=== PATIENT | female | born 1980 | race Caucasian/White ===

== ENCOUNTER 2022-01-03 10:44 | Emergency (ER) | payer OTHER, SELFPAY ==
[2022-01-03 10:53] VITALS: BP 113/93; PULSE 86; RESP 18; TEMP 36.7; O2SAT 98; BMI 26.6
--- NOTE | 2022-01-03 11:15 | CT_ITS ---
Final Report Patient: JERI PAGE Facility:?[facility] Patient ID:?[id number] Site Patient ID:?[id number] Site :?[id number] Study:?CT Abdomen/Pelvis w/o-01/03/2022 12:03:12 PM Ordering Physician:?DR. TRENT Final Report: INDICATION: Abdominal pain radiating to the back. COMPARISON: None TECHNIQUE: CT examination of the abdomen and pelvis was performed without intravenous contrast. Thin section axial images were obtained from the lung bases through the pubic symphysis. Oral contrast was not administered. Please note that all CT scans at this facility use dose modulation, iterative reconstruction, and/or weight-based dosing when appropriate to reduce radiation dose to as low as reasonably achievable. FINDINGS: LUNG BASES: The lung bases as visualized appear normal.The heart size is normal at the lung bases. LIVER/BILIARY SYSTEM:The liver is normal in size and configuration given the lack of intravenous contrast. There is no visible focal mass and there is no intra- or extra hepatic biliary ductal dilatation.The gall bladder appears normal. ADRENALS: Normal non-contrast appearance KIDNEYS, URETERS and BLADDER:There are small intrarenal calculi bilaterally. There is prominence of the left ureter. This appears to be due to a 2.5 millimeter calculus in the distal left ureter near the ureterovesical junction SPLEEN:Normal non-contrast appearance. PANCREAS: Normal non-contrast appearance. RETROPERITONEUM and MESENTERY: There is no mass, adenopathy or aortic aneurysm. GASTROINTESTINAL SYSTEM: There is no evidence of diverticulitis, colitis, mechanical obstruction, or appendicitis. The small bowel as visualized appears normal.Fecal retention PELVIS: No mass, adenopathy or free fluid. OSSEOUS STRUCTURES and ABDOMINAL WALL: There is an age-appropriate appearance of the osseous structures.No significant abdominal wall defect. OTHER: No free fluid or free air. IMPRESSION: Intrarenal calculi bilaterally. Mild left hydroureter. There is a 2.5 millimeter calcified calculus in the distal left ureter near the ureterovesical junction. Please note that all CT scans at this facility use dose modulation, iterative reconstruction, and/or weight-based dosing when appropriate to reduce radiation dose to as low as reasonably achievable. Dictated by Alvaro Larson MD @ 01/03/2022 12:40:12 PM (Electronic Signature)
[2022-01-03 11:39] LABS: Basophils Absolute Auto 0.02 K/uL (0.00-0.30); Basophils Percent Auto 0.3 % (0.0-3.0); Eosinophils Absolute Auto 0.07 K/uL (0.00-0.50); Eosinophils Percent Auto 0.9 % (0.0-7.0); Hematocrit 37.5 % (33.0-51.0); Hemoglobin* 12.3 gm/dL (12.0-16.0); Immature Granulocytes Abs Auto 0.01 K/uL (0.00-0.30); Lymphocytes Percent Auto 16.9 % (20-44); Mean Corpuscular HGB Conc 33 gm/dL (32-36); Mean Corpuscular Hemoglobin 29 pg (26-34); Mean Corpuscular Volume 89 fL (80-100); Monocytes Percent Auto 5.4 % (0.0-11.0); Neutrophils Percent Auto 76.4 % (42.0-72.0); Platelet Count* 300 K/uL (140-440); RDW Coefficient of Variation % 13.5 % (11.5-15.5); Red Blood Count 4.23 m/uL (4.00-5.20); Sodium* 139 mmol/L (135-149); White Blood Count* 7.75 K/uL (4.50-11.00)
[2022-01-03 11:40] LABS: Carbon Dioxide* 23 mmol/L (20-32); Chloride* 107 mmol/L (96-114); Glucose* 94 mg/dL (60-115)
[2022-01-03 11:41] LABS: Slide Review Reflex No
[2022-01-03] MEDS: 0.9 % SODIUM CHLORIDE 500 ML 500 ML IV (12:11)
[2022-01-03 12:41] LABS: Blood Urea Nitrogen* 15 mg/dL (5-24); Creatinine* 0.7 mg/dL (0.5-1.5); Est. Creatinine Clearance* 86.61; Estimated Glomerular Filt Rate 111 ml/min
[2022-01-03 12:42] LABS: Calcium* 9.1 mg/dL (8.4-10.6)
--- NOTE | 2022-01-03 12:51 | ED_ITS ---
HPI - Abdominal Pain General Time Seen by Provider: 11:00 Date Seen: 01/03/22 Chief Complaint: Abdominal Pain Stated Complaint: Abdominal pain on left side radiates to back Time Seen by Provider: 01/03/22 11:08 Source: patient and RN notes reviewed Mode of arrival: ambulatory Limitations: no limitations History of Present Illness HPI narrative: Tresa is a very pleasant 41-year-old female with a history of frequent yeast infections and ovarian cysts who comes to the emergency room for evaluation of left sided abdominal pain. Patient notes the sudden onset of left abdominal pain after urinating earlier. She notes that the pain wraps around to her back. It is not associated with any vomiting. She describes is fairly intense. She notes that it went away initially and then came back. Currently at this moment she states she is feeling okay. She states that her ovarian cysts have not caused her this type of pain before. She notes that she is due for her period in 1 week and she frequently gets yeast type is vaginal symptoms prior to it. Not had fever or chills. Patient has a history of pancreatitis of unknown cause. Patient has a brother with kidney stones. Related Data Home Medications Medication Instructions Recorded Confirmed atorvastatin 10 mg tablet mg 01/03/22 Allergies Allergy/AdvReac Type Severity Reaction Status Date / Time No Known Drug Allergies Allergy Verified 01/03/22 10:59 Review of Systems Status of ROS Reports: 6 or more systems reviewed and unremarkable except as noted in History and below Narrative Patient denies fever or chills, denies hematuria but does note some mild dysuria. Patient has not had diarrhea or constipation. She denies any recent cough cold congestion. Const Denies: fever or chills ENMT Denies: difficulty swallowing Cardio Denies: chest pain or shortness of breath with exertion Resp Denies: shortness of breath GI Denies: difficulty swallowing Reports: painful urination; Denies: urinary frequency Neuro Denies: headache Endo Denies: excessive urination PFSH [facility] Medical History (Updated 01/03/22 @ 14:28 by Soco Abdi MD) Ovarian cyst Pancreatitis Surgical History (Updated 01/03/22 @ 11:02 by Opal Mccoy RN) S/P removal of ovarian cyst Social History Smoking Status: Never smoker How often do you have a drink containing alcohol: monthly or less AUDIT-C Alcohol total score: 1 Non-prescribed substance use: denies use Exam Narrative: Exam Narrative: Family history: Patient has a brother with history of kidney stones. Const: Vital Signs, click to edit/add: Vital Signs - 24 hr 01/03/22 10:53 Temperature 98.1 F Pulse Rate [Pulse Oximeter] 86 Respiratory Rate 18 Blood Pressure [Ri ght Upper Arm] 113/93 H Pulse Oximetry 98 Documenting provider has reviewed patient's vital signs: yes Common normals: no apparent distress and oriented x3 General appearance: cooperative and other (Very guarded in her movement.) HENMT: Common normals: normocephalic Head and scalp: normocephalic Eye: General eye: normal appearance of both eyes Neck & C-Spine: Common normals: full ROM Resp: Common normals: normal respiratory effort and clear to auscultation b ilaterally Auscultation: clear to auscultation bilaterally Cardio: Common normals: regular rate and regular rhythm Rate: regular rate Rhythm: regular rhythm GI: Common normals: soft to palpation Palpation: soft : Common normals: no CVA tenderness Bladder/kidney exam: no CVA tenderness Back & Pelvis: Common normals: no CVA tenderness Extremity: Common normals: normal to inspection Neuro: Common normals: oriented x3 Course Reevaluation(s) Reevaluation #1: Patient is strongly suspicious for kidney stones but we cannot rule out the possibility of ovarian cyst, colitis, hernia, constipation, UTI. Will obtain a urinalysis and will put patient through CT scan without contrast at this time. Will strain urine as she is feeling better at this time. Also will check CBC, basic panel. Vital Signs Vital signs: Initial Vital Signs Temperature 98.1 F 01/03/22 10:53 Temperature Source Temporal Artery Scan 01/03/22 10:53 Pulse Rate 86 01/03/22 10:53 Pulse Rhythm 01/03/22 10:53 Respiratory Rate 18 01/03/22 10:53 Blood Pressure 113/93 H 01/03/22 10:53 Blood Pressure Mean 99 01/03/22 10:53 Blood Pressure Position Sitting 01/03/22 10:53 Pulse Oximetry 98 01/03/22 10:53 Oxygen Delivery Method 01/03/22 10:53 Vital Signs Temperature 98.1 F 01/03/22 10:53 Pulse Rate 86 01/03/22 10:53 Respiratory Rate 18 01/03/22 10:53 Blood Pressure 113/93 H 01/03/22 10:53 Pulse Oximetry 98 01/03/22 10:53 Temperature 98.1 F 01/03/22 10:53 Pulse Rate 86 01/03/22 10:53 Respiratory Rate 18 01/03/22 10:53 Blood Pressure 113/93 H 01/03/22 10:53 Pulse Oximetry 98 01/03/22 10:53 MDM - Abdominal Pain MDM Narrative Medical decision making narrative: 1. Ureteral colic-patient has a 2.5 mm kidney stone in the distal left ureter causing mild hydronephrosis. Urinalysis does not show any evidence of UTI and white count is reassuring. Patient has not had return of pain since she has been here. She did strain her urine for her urine sample. Will have her continue to strain her urine at home. She declines any medications but she may use ibuprofen as needed for discomfort. I have advised tresa to follow-up with further primary MD if she has continued similar symptoms. We would not want to have an on passed stone for greater than 2 weeks. She is to return to the emergency room for worsening symptoms. 2. Disposition-patient is discharged home. Return for worsening symptoms and as needed. Medical Records Medical records narrative: Previous records reviewed Lab Data Lab results narrative: Lab reviewed Labs: Lab Results 01/03/22 01/03/22 01/03/22 Range/Units 11:10 11:10 13:10 WBC 7.75 (4.50-11.00) K/uL RBC 4.23 (4.00-5.20) m/uL Hgb 12.3 (12.0-16.0) gm/dL Hct 37.5 (33.0-51.0) % MCV 89 (80-100) fL MCH 29 (26-34) pg MCHC 33 (32-36) gm/dL RDW Coeff of Tod 13.5 (11.5-15.5) % Plt Count 300 (140-440) K/uL Neut % (Auto) 76.4 H (42.0-72.0) % Lymph % (Auto) 16.9 L (20-44) % [place] % (Auto) 5.4 (0.0-11.0) % Eos % (Auto) 0.9 (0.0-7.0) % Baso % (Auto) 0.3 (0.0-3.0) % Neut # (Auto) 5.90 (1.7-7.0) K/uL Lymph # (Auto) 1.30 (0.90-2.90) K/uL [place] # (Auto) 0.40 (0.00-0.90) K/UL Eos # (Auto) 0.07 (0.00-0.50) K/uL Baso # (Auto) 0.02 (0.00-0.30) K/uL Abs Immat Gran (auto) 0.01 (0.00-0.30) K/uL Sodium 139 (135-149) mmol/L Potassium 4.0 (3.6-5.1) mmol/L Chloride 107 (96-114) mmol/L Carbon Dioxide 23 (20-32) mmol/L BUN 15 (5-24) mg/dL Creatinine 0.7 (0.5-1.5) mg/dL Estimated Creat Clear 86.61 Estimated GFR 111 ml/min Glucose 94 (60-115) mg/dL Calcium 9.1 (8.4-10.6) mg/dL Urine Color Yellow (Yellow) Urine Appearance Clear (Clear) Urine pH 6.0 (5.0-8.5) Ur Specific [place] 1.025 (1.000-1.030) Urine Protein Negative (Negative) Urine Glucose (UA) Negative (Negative) Urine Ketones Trace A (Negative) Urine Blood 3+ A (Negative) Urine Nitrite Negative (Negative) Urine Bilirubin Negative (Negative) Urine Urobilinogen 0.2 (0.2-1.0) Ur Leukocyte Esterase Negative (Negative) Urine RBC 25-50 A (0-2) Urine WBC 2-5 (0-5) Ur Squamous Epith Cells Few (None-Few) Amorphous Sediment (None) Urine Bacteria Few A (None) Urine Mucus Moderate A (None) Imaging Data CT scan - abdomen: My impression: Small stone noted in the distal left ureter Radiologist's impression: 2.5 mm stone in the distal left ureter causing mild hydronephrosis. Discharge Plan Discharge Clinical Impression: Calculus of kidney Patient Disposition: Home, Self-Care Condition: Improved Additional Instructions: Recommend pushing fluids. Ibuprofen may be used for discomfort. Follow-up with your primary MD if you are noticing recurrent discomfort. A urology appointment may be necessary if we think you have not passed the stone. Continue to strain your urine. Return to the emergency room for fever, vomiting and as needed. Activity Level: No Restrictions Prescriptions: No Action atorvastatin 10 mg tablet 0RF Label Comments: TAKE ONE TABLET BY MOUTH EVERY DAY Follow Up/Referrals: Provider,Not a Local [Primary Care Provider] - Stand Alone Forms: [employer] Info Instructions
[2022-01-03 14:17] LABS: Appearance Urine Clear (Clear); Bilirubin Urine Negative (Negative); Blood Urine 3+ (Negative); Color Urine Yellow (Yellow); Glucose Urine Negative (Negative); Ketones Urine Trace (Negative); Leukocyte Esterase Urine Negative (Negative); Nitrite Urine Negative (Negative); Protein Urine Negative (Negative); Specific Gravity Urine 1.025 (1.000-1.030); Urobilinogen Urine 0.2 (0.2-1.0)
[2022-01-03 14:24] LABS: Bacteria Urine Few; RBC Urine 25-50 (0-2); Squamous Epithelial Cell Urine Few (None-Few)
[2022-01-03 14:26] LABS: Mucus Urine Moderate
[2022-01-03 15:00] VITALS: BP 120/74; PULSE 84; RESP 18; O2SAT 99
== END 2022-01-03 14:45 | disposition home or self-care (01) ==
PROVIDERS: Emergency Provider Family Medicine
DX: N20.2 Calculus of kidney with calculus of ureter (principal)
CPT/HCPCS: 36415; 74176; 80048; 81003; 81015; 85025; 87086; 96360; 99283; 99284; J7120

== ENCOUNTER 2022-01-05 13:27 | Emergency (ER) | payer OTHER, SELFPAY ==
[2022-01-05 14:03] VITALS: BP 113/70; PULSE 70; RESP 20; TEMP 36.5; O2SAT 100; BMI 26.6
--- NOTE | 2022-01-05 14:43 | ED.GENADULT ---
HPI - General Adult General Time Seen by Provider: 14:45 Date Seen: 01/05/22 Chief complaint: Abdominal Pain Stated complaint: Kidney pain/stones, dizzy Time Seen by Provider: 01/05/22 13:31 History of Present Illness HPI narrative: Janae is a 41-year-old female presents emerged department with family member with abdominal pain. Patient states she was seen here on Monday for left lower quadrant pain, imaging showed patient had a 2.5 mm kidney stone in the distal left ureter causing mild hydronephrosis, no signs of infection on her urinalysis, labs are otherwise normal. She had been doing relatively well until about 4 hours ago, she does not feel she passed the stone, she has has increasing pain to the left flank and left lower quadrant area. She is currently on her menses, she has not taken anything for the pain. Her urinary output has decreased, she denies any dysuria or hematuria. She has not had any fevers, chills, back pain, nausea vomiting. Due to the worsening pain she presents emergency department. Related Data Home Medications Medication Instructions Recorded Confirmed atorvastatin 10 mg tablet mg 01/03/22 Previous Rx's Medication Instructions Recorded cefdinir 300 mg capsule 300 mg PO BID 7 Days #14 cap 01/05/22 oxycodone-acetaminophen 5 mg-325 1 tab PO Q4-6H PRN #10 tab 01/05/22 mg tablet (Percocet) tamsulosin 0.4 mg capsule (Flomax) 0.4 mg PO DAILY #5 cap 01/05/22 Allergies Allergy/AdvReac Type Severity Reaction Status Date / Time No Known Drug Allergies Allergy Verified 01/03/22 10:59 Review of Systems Status of ROS: Reports: 10 or more systems reviewed and unremarkable except as noted in History and below [facility] Medical History (Updated 01/05/22 @ 17:29 by Herb Welsh MD) Ovarian cyst Pancreatitis Surgical History (Updated 01/03/22 @ 11:02 by Opal Mccoy RN) S/P removal of ovarian cyst Social History Smoking Status: Never smoker How often do you have a drink containing alcohol: monthly or less AUDIT-C Alcohol total score: 1 Non-prescribed substance use: denies use Exam Narrative: Exam Narrative: General: She is in obvious distress HEENT: Pupils equal round reactive to light, extraocular muscles intact Neck: Supple : Lungs clear to auscultation Heart: S1-S2 normal sinus rhythm Abdomen: Soft, tender to palpation the left lower quadrant and flank, there is guarding. Muscle skeletal: +5 strength upper and lower extremities Neuro: Awake alert orientated X 3 Const: Vital Signs, click to edit/add: Vital Signs - 24 hr 01/05/22 14:03 01/05/22 15:00 01/05/22 15:19 Temperature 97.7 F Pulse Rate [Pulse Oximeter] 70 76 80 Respiratory Rate 20 16 16 Blood Pressure [Ri ght Upper Arm] 113/70 132/83 Pulse Oximetry 100 96 95 Course Course Hospital Course: 2:25 PM: Workup will include IV peripheral, 0.9 normal saline bolus, 50 mg IV Toradol and 0.5 mg IV Dilaudid for her pain, will obtain lab CBC, CMP, urinalysis. Likely receive Flomax 0.4 mg. Vitals are stable. Will also obtain a US renal and bladder to see if the stone has passed and there is still hydronephrosis. Reevaluation(s) Reevaluation #1: Patient was updated on her lab results, CBC showed mild leukocytosis, elevated neutrophils, metabolic panel within normal limits, urinalysis showed greater than 100 white blood cells, urine culture pending, plan to give ceftriaxone 1 g IV, likely discharge with Omnicef 300 mg b.i.d. over 7days, pain has been controlled, she is resting comfortably. Time: 15:30 Reevaluation #2: Patient updated on her ultrasound results, still left hydro ureter and hydronephrosis present, they comment that stone is still present at the distal UVJ, this was read by Radiology. Pain is still control, plan would be to discharge, prescription for Percocet 5/325 mg tablets 1-2 every 4-6 hours for breakthrough pain, will give her short course of Flomax 0.4 mg to use daily until stone is passed, Omnicef 300 mg b.i.d. over the next week for UTI coverage. Patient should follow up with a primary care provider over the next 7-10 days, reasons to return were given. All questions answered. Time: 17:00 Vital Signs Vital signs: Initial Vital Signs Temperature 97.7 F 01/05/22 14:03 Temperature Source Temporal Artery Scan 01/05/22 14:03 Pulse Rate 70 01/05/22 14:03 Pulse Rhythm 01/05/22 14:03 Respiratory Rate 20 01/05/22 14:03 Blood Pressure 113/70 01/05/22 14:03 Blood Pressure Mean 84 01/05/22 14:03 Pulse Oximetry 100 01/05/22 14:03 Oxygen Delivery Method 01/05/22 14:03 Vital Signs Temperature 97.7 F 01/05/22 14:03 Pulse Rate 70 01/05/22 14:03 Respiratory Rate 20 01/05/22 14:03 Blood Pressure 113/70 01/05/22 14:03 Pulse Oximetry 100 01/05/22 14:03 Temperature 97.7 F 01/05/22 14:03 Pulse Rate 80 01/05/22 15:19 Respiratory Rate 16 01/05/22 15:19 Blood Pressure 132/83 01/05/22 15:19 Pulse Oximetry 95 01/05/22 15:19 Medical Decision Making Lab Data Labs: Lab Results 01/05/22 01/05/22 01/05/22 Range/Units 14:33 14:44 14:44 WBC 11.86 H (4.50-11.00) K/uL RBC 4.18 (4.00-5.20) m/uL Hgb 12.3 (12.0-16.0) gm/dL Hct 36.8 (33.0-51.0) % MCV 88 (80-100) fL MCH 29 (26-34) pg MCHC 33 (32-36) gm/dL RDW Coeff of Tod 13.5 (11.5-15.5) % Plt Count 290 (140-440) K/uL Neut % (Auto) 87.4 H (42.0-72.0) % Lymph % (Auto) 8.1 L (20-44) % [place] % (Auto) 3.9 (0.0-11.0) % Eos % (Auto) 0.2 (0.0-7.0) % Baso % (Auto) 0.3 (0.0-3.0) % Neut # (Auto) 10.40 H (1.7-7.0) K/uL Lymph # (Auto) 1.00 (0.90-2.90) K/uL [place] # (Auto) 0.50 (0.00-0.90) K/UL Eos # (Auto) 0.00 (0.00-0.50) K/uL Baso # (Auto) 0.00 (0.00-0.30) K/uL Abs Immat Gran (auto) 0.01 (0.00-0.30) K/uL Sodium 136 (135-149) mmol/L Potassium 3.8 (3.6-5.1) mmol/L Chloride 107 (96-114) mmol/L Carbon Dioxide 23 (20-32) mmol/L BUN 14 (5-24) mg/dL Creatinine 0.9 (0.5-1.5) mg/dL Estimated Creat Clear 67.36 Estimated GFR 82 ml/min Glucose 108 (60-115) mg/dL Calcium 9.1 (8.4-10.6) mg/dL Total Bilirubin 0.8 (0.1-1.5) mg/dL AST 23 (12-35) U/L ALT 13 (4-35) U/L Alkaline Phosphatase 58 (40-150) U/L Total Protein 6.7 (6.0-8.3) g/dL Albumin 4.4 (3.3-5.0) g/dL Urine Color Yellow (Yellow) Urine Appearance Clear (Clear) Urine pH 5.5 (5.0-8.5) Ur Specific [place] >= 1.030 (1.000-1.030) Urine Protein 2+ A (Negative) Urine Glucose (UA) Negative (Negative) Urine Ketones 2+ A (Negative) Urine Blood 3+ A (Negative) Urine Nitrite Negative (Negative) Urine Bilirubin 1+ A (Negative) Urine Urobilinogen 0.2 (0.2-1.0) Ur Leukocyte Esterase Negative (Negative) Urine RBC 2-5 A (0-2) Urine WBC >100 A (0-5) Ur Squamous Epith Cells None (None-Few) Urine Bacteria None (None) Discharge Plan Discharge Clinical Impression: Colic, ureteral Patient Disposition: Home, Self-Care Condition: Improved Instructions: Renal Colic (ED) Activity Level: Activity as Tolerated Discharge Diet: Regular Prescriptions: New tamsulosin [Flomax] 0.4 mg capsule 0.4 mg PO DAILY Qty: 5 2RF oxycodone-acetaminophen [Percocet] 5-325 mg tablet 1 tab PO Q4-6H PRN (Reason: pain) Qty: 10 0RF cefdinir 300 mg capsule 300 mg PO BID 7 Days Qty: 14 0RF No Action atorvastatin 10 mg tablet 0RF Label Comments: TAKE ONE TABLET BY MOUTH EVERY DAY Follow Up/Referrals: Provider,Not a Local [Primary Care Provider] - Stand Alone Forms: [employer] Info Instructions
[2022-01-05] MEDS: HYDROmorphone 0.5 mg/0.5 ml inj IVP (14:55)
[2022-01-05] MEDS: KETOROLAC 15 MG/ML inj IVP (14:55)
[2022-01-05] MEDS: 0.9 % SODIUM CHLORIDE 1000 ml 1,000 ML IV (14:55)
[2022-01-05 14:56] LABS: Basophils Percent Auto 0.3 % (0.0-3.0); Eosinophils Percent Auto 0.2 % (0.0-7.0); Hematocrit 36.8 % (33.0-51.0); Hemoglobin* 12.3 gm/dL (12.0-16.0); Immature Granulocytes Abs Auto 0.01 K/uL (0.00-0.30); Lymphocytes Percent Auto 8.1 % (20-44); Mean Corpuscular HGB Conc 33 gm/dL (32-36); Mean Corpuscular Hemoglobin 29 pg (26-34); Mean Corpuscular Volume 88 fL (80-100); Monocytes Percent Auto 3.9 % (0.0-11.0); Neutrophils Percent Auto 87.4 % (42.0-72.0); Platelet Count* 290 K/uL (140-440); RDW Coefficient of Variation % 13.5 % (11.5-15.5); Red Blood Count 4.18 m/uL (4.00-5.20); White Blood Count* 11.86 K/uL (4.50-11.00)
[2022-01-05 14:58] LABS: Appearance Urine Clear (Clear); Bilirubin Urine 1+ (Negative); Blood Urine 3+ (Negative); Color Urine Yellow (Yellow); Glucose Urine Negative (Negative); Ketones Urine 2+ (Negative); Leukocyte Esterase Urine Negative (Negative); Nitrite Urine Negative (Negative); Protein Urine 2+ (Negative); Specific Gravity Urine >= 1.030 (1.000-1.030); Urobilinogen Urine 0.2 (0.2-1.0); pH Urine 5.5 (5.0-8.5)
[2022-01-05 15:00] VITALS: PULSE 76; RESP 16; O2SAT 96
--- NOTE | 2022-01-05 15:03 | ED.NURSE ---
Report from Osiris, I will now assume care of patient.
[2022-01-05 15:07] LABS: Albumin* 4.4 g/dL (3.3-5.0); Chloride* 107 mmol/L (96-114); Sodium* 136 mmol/L (135-149)
[2022-01-05 15:08] LABS: Potassium* 3.8 mmol/L (3.6-5.1)
[2022-01-05 15:10] LABS: Alanine Aminotransferase* 13 U/L (4-35); Alkaline Phosphatase* 58 U/L (40-150); Aspartate Amino Transferase* 23 U/L (12-35); Bilirubin Total* 0.8 mg/dL (0.1-1.5); Blood Urea Nitrogen* 14 mg/dL (5-24); Carbon Dioxide* 23 mmol/L (20-32); Creatinine* 0.9 mg/dL (0.5-1.5); Est. Creatinine Clearance* 67.36; Estimated Glomerular Filt Rate 82 ml/min; Glucose* 108 mg/dL (60-115); Total Protein* 6.7 g/dL (6.0-8.3)
[2022-01-05 15:11] LABS: Calcium* 9.1 mg/dL (8.4-10.6)
[2022-01-05] MEDS: TAMSULOSIN HCL 0.4 MG CAPSULE PO (15:16)
[2022-01-05 15:17] LABS: WBC Urine >100 (0-5)
[2022-01-05 15:19] VITALS: BP 132/83; PULSE 80; RESP 16; O2SAT 95
--- NOTE | 2022-01-05 15:20 | ED.NURSE ---
Patient asleep on reclined chair when magazine writer enters room. Awakens easily. Reports pain 11/26. Tamsulosin per order - see eMAR. No further needs.
[2022-01-05 15:30] LABS: Slide Review Reflex No
--- NOTE | 2022-01-05 15:34 | CRLHL7_ITS ---
For Patients: As a result of the Cures Act, medical imaging exams and procedure reports are released immediately into your electronic medical record. You may view this report before your referring provider. If you have questions, please contact your health care provider. INDICATION: Left-sided hydronephrosis and hydro ureter; followup. COMPARISON: CT abdomen and pelvis without intravenous contrast January 03, 2022. TECHNIQUE: Ultrasound examination of the kidneys and bladder. FINDINGS: The right kidney is measuring 10.7 x 4 x 4.7 cm and the left kidneys measure 11.6 x 5.8 x 6.4 cm. Normal echogenic pattern of the renal cortex bilaterally . Normal thickness of the renal cortex bilaterally measuring 12 mm on the right and 16 mm on the left. No evidence of hydronephrosis on the right. Evidence of hydronephrosis and hydroureter on the left with a 7 mm stone at the left ureterovesical junction. A 6 mm stone identified in the lower pole calyx left kidney. Prevoid bladder volume is 21 cc. IMPRESSION: 1. 7 mm obstructing calculus left UVJ causing hydronephrosis and hydroureter. 2. 6 mm nonobstructing calculus lower pole calyx left kidney. Dictated by Derek Christine MD @ 01/05/2022 5:07:31 PM (Electronically Signed)
[2022-01-05] MEDS: cefTRIAXone 1 GM in 0.9 % SODIUM CHLORIDE Mini-bag 100 ML IVPB (17:32)
[2022-01-05 17:36] VITALS: BP 106/77; PULSE 88; RESP 16; O2SAT 98
== END 2022-01-05 18:08 | disposition home or self-care (01) ==
PROVIDERS: Emergency Provider Student in an Organized Health Care Education/Training Program
DX: N20.1 Calculus of ureter (principal)
CPT/HCPCS: 36415; 76770; 80053; 81001; 85025; 87086; 96365; 96375; 99283; 99284; A9270; J0696; J1170; J1885; J7030